=== PATIENT | female | born 1945 | race Hispanic/Latino ===

== ENCOUNTER → 2017-11-26 | Outpatient (CLI) | payer OTHER ==
[~2017-11-26] MED LIST: ASPI-1005 PO; ESOM40CA PO; FURO20TA4 PO; MEMA5TAB15 PO; METO25TA6 PO; ROSU5TAB11 PO
== END | disposition home or self-care (01) ==
LOC: SHCH 10:24
PROVIDERS: ATTEND Internal Medicine Cardiovascular Disease
DX: I35.8 Other nonrheumatic aortic valve disorders (principal); I10 Essential (primary) hypertension; E11.9 Type 2 diabetes mellitus without complications
CPT/HCPCS: 93306

== ENCOUNTER 2018-01-27 08:23 | Day surgery (SDC) | payer OTHER ==
[2018-01-23 09:47] LABS: BASOPHILS % (AUTO) 0.9 % (0.0-5.0); EOSINOPHILS % (AUTO) 1.4 % (0.0-8.0); LYMPHOCYTES % (AUTO) 22.4 % (21.0-51.0); MEAN CORPUSCULAR HEMOGLOBIN 32.3 pg (27.0-33.0); MEAN CORPUSCULAR HGB CONC 34.6 g/dL (32.0-36.0); MEAN CORPUSCULAR VOLUME 93.4 fL (79-99); MONOCYTES % (AUTO) 9.3 % (3.0-13.0); PLATELET COUNT (AUTO) 137 K/uL (130-400); RED BLOOD CELL COUNT(AUTO) 3.64 MIL/uL (4.00-5.50); RED CELL DISTRIBUTION WIDTH 13.4 % (11.0-15.5); WHITE BLOOD COUNT (AUTO) 3.9 K/uL (4.8-10.8)
[2018-01-23 09:49] VITALS: BP 146/71
[2018-01-23 09:49] LABS: APPEARANCE,URINE Clear (CLEAR); BILIRUBIN,URINE Negative (NEGATIVE); COLOR,URINE Yellow (YELLOW); GLUCOSE, URINE (UA) Negative (NEGATIVE); KETONES,URINE Negative (NEGATIVE); LEUKOCYTE ESTERASE ,URINE Negative (NEGATIVE); NITRATE,URINE Negative (NEGATIVE); OCCULT BLOOD,URINE Negative (NEGATIVE); PROTEIN,URINE Negative (NEGATIVE)
[2018-01-23 09:53] LABS: CREATININE 0.6 mg/dL (0.5-1.5); POTASSIUM 4.4 mmol/L (3.5-5.1)
[2018-01-23 10:06] LABS: INR 1.1 (0.85-1.15); PARTIAL THROMBOPLASTIN TIME 28.1 SEC (26.3-35.5); PROTHROMBIN TIME 11.5 SEC (9.6-11.6)
[~2018-01-27] VITALS: Ht 151.1 cm; Wt 82.9 kg
[2018-01-27] VITALS (10 sets, daily range): BP systolic 118–146; BP diastolic 51–74
[~2018-01-27 08:23] MED LIST changes: +ACETAMINOPHEN 325 MG TAB PO PRN; +SODIUM CHLORIDE 0.9% 500ML 500 ML IV SCH
[2018-01-27] MEDS ORDERED: SODIUM BICARB 50MEQ 50ML VIAL ONE (13:56)
[2018-01-27] MEDS ORDERED: ISOVUE-370 50ML VIAL IV ONE (13:56)
[2018-01-27] MEDS ORDERED: IOPAMIDOL-370 100 ML VIAL IV ONE (13:56)
[2018-01-27] MEDS ORDERED: NITROGLYCERIN 5 MG/ML 10 ML VIAL IV ONE (13:56)
[2018-01-27] MEDS ORDERED: HEPARIN SODIUM 1000UNIT/ML 10ML VIAL ONE (13:56)
[2018-01-27] MEDS ORDERED: LIDOCAINE HCL 2% 20ML ONE (13:57)
[2018-01-27] MEDS ORDERED: SODIUM CHLORIDE 0.9% 1000ML 1,000 ML IV ONE (14:00)
[2018-01-27] MEDS ORDERED: MEPERIDINE-PF 25 MG/ML SYG ONE (14:27)
[2018-01-27] MEDS ORDERED: MIDAZOLAM HCL 1 MG/ML 2ML VIAL ONE (14:27)
[2018-01-27] MEDS ORDERED: SODIUM CHLORIDE 0.9% 1000ML 1,000 ML IV SCH (15:01)
[2018-01-27] MEDS ORDERED: ACETAMINOPHEN-CODEINE 300/30MG TAB PO PRN ×2 (15:15)
[2018-01-27] MEDS ORDERED: INSULIN HUMULIN R 100 UNIT/ML 3ML SQ SCH (16:30)
== END 2018-01-27 19:05 | disposition home or self-care (01) ==
LOC: DAH 08:23
PROVIDERS: ATTEND Internal Medicine Cardiovascular Disease
DX: I20.8 Other forms of angina pectoris (principal); I10 Essential (primary) hypertension; E66.9 Obesity, unspecified; E11.9 Type 2 diabetes mellitus without complications; E78.5 Hyperlipidemia, unspecified; F03.90 Unspecified dementia, unspecified severity, without behavioral disturbance, psychotic disturbance, mood disturbance, and anxiety; Z79.82 Long term (current) use of aspirin; Z98.890 Other specified postprocedural states; Z68.33 Body mass index [BMI] 33.0-33.9, adult; Z82.49 Family history of ischemic heart disease and other diseases of the circulatory system
CPT/HCPCS: 36415; 71045; 80048; 81003; 82948 ×2; 85025; 85610; 85730; 93005; 93458; A4606; C1760; C1894; J1644; J2175; J2250; J3490 ×3; J7030; Q9967 ×2; 99156; 99157

== ENCOUNTER → 2018-08-20 | Outpatient (CLI) | payer OTHER ==
[~2018-08-20] MED LIST changes: -ACETAMINOPHEN 325 MG TAB PO PRN; -SODIUM CHLORIDE 0.9% 500ML 500 ML IV SCH
== END | disposition home or self-care (01) ==
LOC: RAH 08:10
PROVIDERS: ATTEND Internal Medicine
DX: R60.0 Localized edema (principal); R94.5 Abnormal results of liver function studies
CPT/HCPCS: 76700; 93970

== ENCOUNTER → 2020-09-26 | Outpatient (CLI) | payer OTHER ==
[~2020-09-26] MED LIST changes: -MEMA5TAB15 PO; +MEMA5TAB42 PO; -ROSU5TAB11 PO; +ROSU5TAB12 PO
== END | disposition home or self-care (01) ==
LOC: SHCH 08:35
PROVIDERS: ATTEND Internal Medicine Cardiovascular Disease
DX: I05.9 Rheumatic mitral valve disease, unspecified (principal); R55 Syncope and collapse; R60.9 Edema, unspecified
CPT/HCPCS: 93306; 93356; 93970

== ENCOUNTER → 2021-11-08 | Outpatient (CLI) | payer OTHER | END | disposition home or self-care (01) | LOC: SHCH 14:45 | PROVIDERS: ATTEND Internal Medicine Cardiovascular Disease | DX: I87.2 Venous insufficiency (chronic) (peripheral) (principal); I11.9 Hypertensive heart disease without heart failure; E11.9 Type 2 diabetes mellitus without complications | CPT/HCPCS: 93306; 93970 ==

== ENCOUNTER → 2022-01-04 | Outpatient (CLI) | payer OTHER ==
[2022-01-04 12:21] LABS: BASOPHILS % (AUTO) 0.3 % (0.0-5.0); EOSINOPHILS % (AUTO) 1.2 % (0.0-8.0); HEMATOCRIT 33.2 % (36-48); LYMPHOCYTES % (AUTO) 15.7 % (21.0-51.0); MEAN CORPUSCULAR HEMOGLOBIN 32.8 pg (27.0-33.0); MEAN CORPUSCULAR HGB CONC 33.7 g/dL (32.0-36.0); MEAN CORPUSCULAR VOLUME 97.4 fL (79-99); MONOCYTES % (AUTO) 7.2 % (3.0-13.0); NEUTROPHILS % (AUTO) 75.3 % (40.0-77.0); PLATELET COUNT (AUTO) 93 K/uL (130-400); RED BLOOD CELL COUNT(AUTO) 3.41 MIL/uL (4.00-5.50); RED CELL DISTRIBUTION WIDTH 13.6 % (11.0-15.5); WHITE BLOOD COUNT (AUTO) 3.3 K/uL (4.8-10.8)
[2022-01-04 12:52] LABS: ALBUMIN 3.2 g/dL (3.5-5.0); BILIRUBIN,TOTAL 1.5 mg/dL (0.2-1.0); CREATININE 0.9 mg/dL (0.5-1.5); MAGNESIUM 1.7 mg/dL (1.80-2.40); POTASSIUM 4.4 mmol/L (3.5-5.1); THYROID STIMULATING HORMONE 1.9 uIU/mL (0.36-3.74); TOTAL PROTEIN, SERUM 6.5 g/dL (6.0-8.3)
[2022-01-04 13:02] LABS: B-TYPE NATRIURETIC PEPTIDE 44 pg/mL (0-100)
[2022-01-04 13:09] LABS: T4 (THYROXINE) 8.2 ug/dL (4.7-13.3)
== END ==
LOC: LAB 10:08
PROVIDERS: ATTEND Internal Medicine Cardiovascular Disease
DX: E78.5 Hyperlipidemia, unspecified (principal)
CPT/HCPCS: 36415; 80053; 83735; 83880; 84436; 84443; 84479; 85025

== ENCOUNTER 2022-06-20 10:07 | Observation (INO) | payer OTHER ==
[2022-06-20 10:45] LABS: BASOPHILS % (AUTO) 0.9 % (0.0-5.0); EOSINOPHILS % (AUTO) 0.9 % (0.0-8.0); HEMATOCRIT 28.9 % (36-48); LYMPHOCYTES % (AUTO) 21.8 % (21.0-51.0); MEAN CORPUSCULAR HGB CONC 32.9 g/dL (32.0-36.0); MEAN CORPUSCULAR VOLUME 97.3 fL (79-99); MONOCYTES % (AUTO) 10.5 % (3.0-13.0); NEUTROPHILS % (AUTO) 65.5 % (40.0-77.0); PLATELET COUNT (AUTO) 99 K/uL (130-400); RED BLOOD CELL COUNT(AUTO) 2.97 MIL/uL (4.00-5.50); RED CELL DISTRIBUTION WIDTH 14.1 % (11.0-15.5); WHITE BLOOD COUNT (AUTO) 2.3 K/uL (4.8-10.8)
[2022-06-20 10:55] LABS: INR 1.16 (0.85-1.15); PROTHROMBIN TIME 12.5 SEC (9.6-11.6)
[2022-06-20 10:56] LABS: PARTIAL THROMBOPLASTIN TIME 27.1 SEC (26.3-35.5)
[2022-06-20 11:01] LABS: ALBUMIN 2.7 g/dL (3.5-5.0); CREATININE 0.9 mg/dL (0.5-1.5); POTASSIUM 4.4 mmol/L (3.5-5.1); TOTAL PROTEIN, SERUM 5.7 g/dL (6.0-8.3)
[2022-06-20] MEDS ORDERED: LACTULOSE 20 GM/30 ML UDCUP PO PRN (12:00)
[2022-06-20] MEDS ORDERED: ACETAMINOPHEN 325 MG TAB PO PRN (12:00)
[2022-06-20] MEDS ORDERED: ONDANSETRON 4MG INJ IVP PRN (12:00)
[2022-06-20 12:21] LABS: LYMPHOCYTES % (MANUAL) 17 % (22-44); MONOCYTES % (MANUAL) 6 % (2-9); SEGMENTED NEUTROPHILS % 77 % (40-70)
[2022-06-20 12:23] LABS: MAN.DIFF COMMENT-IMPRESSION MANUAL DIFFERENTIAL
[2022-06-20 12:29] LABS: PLATELET MORPHOLOGY COMMENT ADEQUATE
[2022-06-20] MEDS ORDERED: RISP0.5T66 PO (12:36)
[2022-06-20] MEDS ORDERED: MIRA25TA PO (12:36)
[2022-06-20] MEDS ORDERED: FOLI1 PO (12:36)
[2022-06-20] MEDS ORDERED: SPIR25TA6 PO (12:36)
[2022-06-20] MEDS ORDERED: DIME50TA24 PO (12:36)
[2022-06-20] MEDS ORDERED: OMEP40CA21 PO (12:36)
[2022-06-20] MEDS ORDERED: ALEN70TA80 PO (12:36)
[2022-06-20] MEDS ORDERED: LEVO50CA4 PO (12:36)
[2022-06-20] MEDS ORDERED: FERR-72 PO (12:36)
[2022-06-20] MEDS ORDERED: DONE5TAB33 PO (12:36)
[2022-06-20] MEDS: ZOSYN 3.375GM +NS 50ML IV SCH ×2 (14:53→21:06)
[2022-06-20] MEDS: INSULIN HUMULIN R 100 UNIT/ML 3ML SQ SCH ×2 (16:30→21:00)
[2022-06-20 20:16] VITALS: BP 123/53
[2022-06-20] MEDS: FOLIC ACID 1 MG TABLET PO SCH (21:06)
[2022-06-20] MEDS: DONEPEZIL HCL 5 MG TAB PO SCH (21:06)
[2022-06-20 23:54] VITALS: BP 133/55
[2022-06-21 04:22] VITALS: BP 121/51
[2022-06-21] MEDS: ZOSYN 3.375GM +NS 50ML IV SCH ×3 (04:58→20:40)
[2022-06-21 05:49] LABS: BASOPHILS % (AUTO) 0.9 % (0.0-5.0); EOSINOPHILS % (AUTO) 2.2 % (0.0-8.0); LYMPHOCYTES % (AUTO) 28.4 % (21.0-51.0); MEAN CORPUSCULAR HEMOGLOBIN 32.1 pg (27.0-33.0); MEAN CORPUSCULAR HGB CONC 33.3 g/dL (32.0-36.0); MEAN CORPUSCULAR VOLUME 96.4 fL (79-99); MONOCYTES % (AUTO) 10.3 % (3.0-13.0); NEUTROPHILS % (AUTO) 58.2 % (40.0-77.0); PLATELET COUNT (AUTO) 88 K/uL (130-400); RED CELL DISTRIBUTION WIDTH 14.1 % (11.0-15.5); WHITE BLOOD COUNT (AUTO) 2.3 K/uL (4.8-10.8)
[2022-06-21 06:08] LABS: ALBUMIN 2.4 g/dL (3.5-5.0); CREATININE 0.8 mg/dL (0.5-1.5); MAGNESIUM 1.8 mg/dL (1.80-2.40); TOTAL PROTEIN, SERUM 5.4 g/dL (6.0-8.3)
[2022-06-21] MEDS: INSULIN HUMULIN R 100 UNIT/ML 3ML SQ SCH ×4 (06:30→20:54)
[2022-06-21] MEDS: LEVOTHYROXINE 50 MCG TABLET PO SCH (06:33)
[2022-06-21 07:09] VITALS: BP 130/39
[2022-06-21] MEDS: ENOXAPARIN SODIUM 30 MG/0.3 ML SQ SCH (09:00)
[2022-06-21] MEDS: (Mirabegron (Myrbetriq) 25 MG) PO SCH (09:00)
[2022-06-21] MEDS: SPIRONOLACTONE 25 MG TAB PO SCH (09:47)
[2022-06-21] MEDS: RISPERIDONE 0.5 MG TABLET PO SCH (09:47)
[2022-06-21] MEDS: PANTOPRAZOLE 40 MG TAB DR PO SCH (09:48)
[2022-06-21] MEDS: FERROUS SULFATE 325 MG TABLET.DR PO SCH (09:48)
[2022-06-21 12:10] VITALS: BP 134/53
[2022-06-21 16:06] VITALS: BP 116/37
[2022-06-21 20:00] VITALS: BP 120/56
[2022-06-21] MEDS: FOLIC ACID 1 MG TABLET PO SCH (20:40)
[2022-06-21] MEDS: DONEPEZIL HCL 5 MG TAB PO SCH (20:40)
[2022-06-22] VITALS: BP 157/80
[2022-06-22 04:00] VITALS: BP 122/62
[2022-06-22] MEDS: ZOSYN 3.375GM +NS 50ML IV SCH (05:17)
[2022-06-22 05:38] LABS: HEMATOCRIT 28.1 % (36-48); MEAN CORPUSCULAR HEMOGLOBIN 32.4 pg (27.0-33.0); MEAN CORPUSCULAR HGB CONC 32.7 g/dL (32.0-36.0); MEAN CORPUSCULAR VOLUME 98.9 fL (79-99); PLATELET COUNT (AUTO) 79 K/uL (130-400); RED BLOOD CELL COUNT(AUTO) 2.84 MIL/uL (4.00-5.50); RED CELL DISTRIBUTION WIDTH 13.9 % (11.0-15.5); WHITE BLOOD COUNT (AUTO) 2.5 K/uL (4.8-10.8)
[2022-06-22 05:59] LABS: ALBUMIN 2.5 g/dL (3.5-5.0); MAGNESIUM 1.9 mg/dL (1.80-2.40); POTASSIUM 3.7 mmol/L (3.5-5.1); TOTAL PROTEIN, SERUM 5.6 g/dL (6.0-8.3)
[2022-06-22] MEDS: LEVOTHYROXINE 50 MCG TABLET PO SCH (06:07)
[2022-06-22] MEDS: INSULIN HUMULIN R 100 UNIT/ML 3ML SQ SCH ×2 (06:09→11:30)
[2022-06-22 06:12] LABS: BASOPHILS % (MANUAL) 1 % (0-2); EOSINOPHILS % (MANUAL) 2 % (1-6); LYMPHOCYTES % (MANUAL) 24 % (22-44); MONOCYTES % (MANUAL) 10 % (2-9); REACTIVE LYMPHOCYTES 4 % (0-0); SEGMENTED NEUTROPHILS % 59 % (40-70)
[2022-06-22 06:13] LABS: MAN.DIFF COMMENT-IMPRESSION MANUAL DIFFERENTIAL; PLATELET MORPHOLOGY COMMENT DECREASED
[2022-06-22 07:00] VITALS: BP_SYST 107; BP_SYST 125; BP_DIAS 61; BP_DIAS 74
[2022-06-22] MEDS: ENOXAPARIN SODIUM 30 MG/0.3 ML SQ SCH (07:36)
[2022-06-22] MEDS: (Mirabegron (Myrbetriq) 25 MG) PO SCH (09:00)
[2022-06-22] MEDS: PANTOPRAZOLE 40 MG TAB DR PO SCH (09:28)
[2022-06-22] MEDS: FERROUS SULFATE 325 MG TABLET.DR PO SCH (09:29)
[2022-06-22] MEDS: RISPERIDONE 0.5 MG TABLET PO SCH (09:29)
[2022-06-22] MEDS: SPIRONOLACTONE 25 MG TAB PO SCH (09:30)
[2022-06-22 12:04] VITALS: BP 100/41
[2022-06-22 12:07] LABS: APPEARANCE,URINE CLEAR (CLEAR); BILIRUBIN,URINE NEGATIVE (NEGATIVE); COLOR,URINE YELLOW (YELLOW); GLUCOSE, URINE (UA) NEGATIVE (NEGATIVE); KETONES,URINE 5 mg/dL (NEGATIVE); LEUKOCYTE ESTERASE ,URINE NEGATIVE Leu/uL (NEGATIVE); NITRATE,URINE NEGATIVE (NEGATIVE); OCCULT BLOOD,URINE NEGATIVE (NEGATIVE); PH,URINE 5.5 (5.0-8.0); PROTEIN,URINE 20 mg/dL (NEGATIVE); UROBILINOGEN,URINE 3 mg/dL (0.2-1.0)
[2022-06-22 12:16] LABS: AMPHET/METH SCREEN,URINE NEGATIVE (NEGATIVE); BARBITURATE SCREEN, URINE NEGATIVE (NEGATIVE); BENZODIAZEPINES SCREEN,URINE NEGATIVE (NEGATIVE); CANNABINOID SCREEN,URINE NEGATIVE (NEGATIVE); COCAINE SCREEN,URINE NEGATIVE (NEGATIVE); OPIATE SCREEN,URINE NEGATIVE (NEGATIVE); PHENCYCLIDINE SCREEN,URINE NEGATIVE (NEGATIVE)
[2022-06-22 12:19] LABS: MUCUS,URINE RARE LPF (None Seen); SQUAMOUS EPITHELIAL CELL,UR MOD /HPF (0-2)
== END 2022-06-22 15:00 | disposition home or self-care (01) ==
LOC: EDH 10:07 → EDHIP 11:31 → 3DH 15:54
PROVIDERS: ADMIT Internal Medicine Infectious Disease; ATTEND Internal Medicine Infectious Disease
DX: G93.41 Metabolic encephalopathy (principal); I10 Essential (primary) hypertension; E03.9 Hypothyroidism, unspecified; F03.90 Unspecified dementia, unspecified severity, without behavioral disturbance, psychotic disturbance, mood disturbance, and anxiety; N39.0 Urinary tract infection, site not specified; D61.818 Other pancytopenia; E11.9 Type 2 diabetes mellitus without complications; E66.9 Obesity, unspecified; K44.9 Diaphragmatic hernia without obstruction or gangrene; K74.60 Unspecified cirrhosis of liver; K76.82 Hepatic encephalopathy; Z74.01 Bed confinement status; Z79.82 Long term (current) use of aspirin; Z79.899 Other long term (current) drug therapy
CPT/HCPCS: 36415; 70450; 71045; 80053; 80305; 81001; 82140; 82550; 82948; 83605; 83735; 83880; 84484; 85025; 85027; 85610; 85730; 87040; 93005; 96365; 96366; 99291; G0378; J1650; J2543

== ENCOUNTER → 2022-11-28 | Outpatient (CLI) | payer OTHER ==
[~2022-11-28] MED LIST changes: +ALEN70TA80 PO; -ASPI-1005 PO; +DIME50TA24 PO; +DONE5TAB33 PO; -ESOM40CA PO; +FERR-72 PO; +FOLI1 PO; +LEVO50CA4 PO; -MEMA5TAB42 PO; -METO25TA6 PO; +MIRA25TA PO; +OMEP40CA21 PO; +RIFA550T PO; +RISP0.5T66 PO; -ROSU5TAB12 PO; +SPIR25TA6 PO; +TRAZ-185 PO
== END | disposition home or self-care (01) ==
LOC: RAH 09:09
PROVIDERS: ATTEND Internal Medicine Gastroenterology
DX: K76.89 Other specified diseases of liver (principal); K74.60 Unspecified cirrhosis of liver
CPT/HCPCS: 76700; 93975